=== PATIENT | female | born 1990 | race Caucasian/White ===

== ENCOUNTER 2019-05-21 07:44 | Inpatient (IN) ==
[2019-05-21] MEDS ORDERED: OXYTOCIN 30 UNITS/500 ML BAG IV PRN ×3 (08:36→20:06)
--- NOTE | 2019-05-21 08:48 | History & Physical Report ---
Date of Service May 21, 2019 Assessment & Plan (1) Elective induction of labor planned: 29 yo at 39.2 wks , IOL of lbor at term for LGA fetus EFW 3688 gr 2 weeks ago Discussed the risks and benefits, see HPI Decided for trial of VD Cervix favorable GBS negative FHR reassuring Plan to admit, monitor, Oxytocin / AROM when able and anticipate (2) Large for gestational age fetus: History of Present Illness Chief Complaint: Induction Primary Care Provider: Francisco Oconnell MD Patient is a 29 yo at 39.2 wks who was scheduled for IOL at term No complaints No ctxs/ LOF/VB/ OLMSTEAD/ Change in vision/ N&V/ Epigastric or RUQ pain/ fever/ chills/ CP/SOB +FM has been uncomplicated except Baby has been measuring over 90th percentile Last growth US was on 05/08 and EFW was 3688 gr Discussed growth / week, limitation of US for EFW Discussed risks of shoulder dystocia with nerve stretch injury, clavicle fracture, asphyxia with increased weight of baby Discussed recommendation of ACOG, as if EFW over 5000 gr Discussed risks of Csection as major surgery Offered her another US today but politely declined and decided for trial of Vaginal delivery today All questions were answered Allergies Allergy/AdvReac Type Severity Reaction Status Date / Time No Known Allergies Allergy Mild Verified 05/21/19 08:26 Home Medications Home Medications Medication Instructions Recorded Confirmed Type vit-iron fum-folic ac 1 tab PO DAILY 05/21/19 05/21/19 History [ Vitamin] Patient History Medical History H/O vaginal delivery Surgical History [place] teeth extracted Social History Preferred Language: Arabic Communication Ability: Effective Beliefs That Will Affect Care: None marital status: Current Living Situation: Family Other Information That Helps Us Care for You: No Feels Safe at Home: Yes Safety Concerns: Feels Safe At This Time Smoking Status: Former smoker Do You Dip or Chew Tobacco: No ; Hx Alcohol Use: No Hx Substance Use: No OB History FT in 2012, 7 lb 1 oz [employer] History No h/o STD's, no HSV/ Chlamydia/ GC Review of Systems All systems reviewed & are unremarkable except as noted in HPI & below Physical Exam Constitutional: WD/WN, vitals as above well developed and well nourished Comfortable, smiling Gastrointestinal (Abdomen): Abd: soft, NT, gravid, Stuart 8-9 lb Genitourinary: normal external appearance VE; cervix 4 cm/ 60%/ -3, soft, vertex Results & Data Vital Signs (Past 12 Hours) Vital Signs Temp Pulse Resp BP 05/21/19 07:55 36.9 C 89 20 140/81 05/21/19 07:54 89 140/81 Monitoring External Monitor FHR 130's reactive Tocodynamometer Irregular ctxs
[2019-05-21] MEDS: LACTATED RINGER'S 1,000 ML IV PRN ×3 (09:12→18:24)
[2019-05-21 09:18] LABS: Hematocrit (blood only) 35.2 % (37-47); Hemoglobin 12.2 g/dL (12.0-16.0); Mean Corpuscular Hemoglobin 33.4 pg (25-34); Mean Corpuscular Volume 96.4 fL (80-100); Mean Platelet Volume 10.5 fL (7.4-10.4); Platelet Count 217 K/uL (130-400); RDW Coefficient of Variation 13.8 % (11.5-14.5); RDW Standard Deviation 48.6 fL (36.4-46.3); Red Blood Count 3.65 M/uL (4.2-5.4); White Blood Count 8.42 K/uL (4.8-10.8)
[2019-05-21 09:31] LABS: Mean Corpuscular Hgb Conc 34.7 g/dL (32-36)
[2019-05-21 09:35] LABS: Albumin Level 2.5 gm/dl (3.4-5.0); BUN Creatinine Ratio 11.6 (10-20); Calcium 8.4 mg/dl (8.5-10.1); Creatinine Clr Calc Pharmacy 183.7 ml/min; Est GFR (Non-African American) 124.2; Potassium 3.4 mmol/L (3.5-5.1)
[2019-05-21 09:38] LABS: Albumin Globulin Ratio 0.7 (0.9-2); Bilirubin,Total 0.2 mg/dl (0.2-1); Globulin 3.7 gm/dl (2.5-4.0); Total Protein 6.2 gm/dl (6.4-8.2)
--- NOTE | 2019-05-21 12:41 | Obstetrical Progress Note ---
Date of Service May 21, 2019 Subjective Patient is reevaluated She feels ctxs but not very painful No LOF/VB +FM VE; 4-5 cm/ 70%/ -2, bulging bag, AROM'ed clear fluid FHR categ I Harold ctxs a 1-3 min, pitocin at 6 miu/min Continue to monitor Results & Data Vital Signs (Past 12 Hours) Vital Signs Temp Pulse Resp BP 05/21/19 11:06 36.7 C 80 16 123/74 05/21/19 10:02 85 131/78 05/21/19 09:20 81 123/70 05/21/19 07:55 36.9 C 89 20 140/81 05/21/19 07:54 89 140/81
[2019-05-21] MEDS ORDERED: fentaNYL citrate 100 MCG/2 ML VIAL ONE (13:45)
[2019-05-21] MEDS ORDERED: fentaNYL 2MCG/ML ROPIV 1.25MG/ML 100 ML BAG EPI ONE (13:45)
[2019-05-21] MEDS ORDERED: BUPIVACAINE 0.25% 30 ML VIAL ONE (13:45)
[2019-05-21] MEDS ORDERED: ePHEDrine sulfate 50 MG/ML AMP ONE (13:45)
--- NOTE | 2019-05-21 14:00 | Anesthesiology Consultation ---
Date of Service May 21, 2019 Assessment & Plan Chart Review Chart Review: Acceptable Risk for Surgery, Patient NOT seen in Pre Admission Testing and Acceptable Risk for Labor Epidural Consults Requested none ASA ASA2 Proposed Anesthesia Anesthesia Type: General and Labor Epidural Risk / Benefits Reviewed With: PT / POA / Parent / Guardian, Accepts Plan and Informed Consent Obtained History Height/Weight Height: 5 ft 7 in Weight: 107.501 kg Allergies Allergy/AdvReac Type Severity Reaction Status Date / Time No Known Allergies Allergy Mild Verified 05/21/19 08:26 Medications Home Medications Medication Instructions Recorded Confirmed Last Taken vit-iron fum-folic ac 1 tab PO DAILY 05/21/19 05/21/19 05/20/19 08:00 [ Vitamin] Active Medications Generic Name Dose Route Start Last Admin Trade Name Freq PRN Reason Stop Dose Admin Oxytocin 30 units in 500 mls @ 2 mls/hr 05/21/19 08:36 05/21/19 13:02 Pitocin IV 05/23/19 08:35 0.12 units/hr .Q24H PRN 2 mls/hr Labor Induction/Augmentation Titration Protocol 0.12 UNITS/HR Lactated Ringer's 1,000 mls @ 150 mls/hr 05/21/19 08:37 05/21/19 13:59 Lr IV 05/23/19 08:36 999 mls/hr .[id number] PRN Titration L&D Protocol Protocol NPO Date Last Intake of Fluids: 05/21/19 Time Last Intake of Fluids: 12:00 Date Last Intake of Solids: 05/21/19 Time Last Intake of Solids: 07:00 Past Medical History Medical History H/O vaginal delivery Exercise / Class Metabolic Activity II 4-5 Yardwork/Stairs/Walk up hill Past Surgical History Surgical History [place] teeth extracted Past Anesthesia History No Hx of Anesthesia Complications and No Family Hx of Anesthesia Complications History of PONV No Hx of PONV and No Hx of Motion Sickness Social History Smoking Status: Former smoker Do You Dip or Chew Tobacco: No Hx Alcohol Use: No Hx Substance Use: No substance use type: does not use Physical Exam Vital Signs Last Vital Signs Temp 36.7 C 05/21/19 11:06 Pulse 72 05/21/19 13:13 Resp 20 05/21/19 13:13 BP 134/76 05/21/19 13:13 Constitutional + obese ENMT Mouth: + small oral opening; no dentition abnormality Thyromental Distance: < 3.5 Finger Breadths Mallampati Class: II Neck normal visual inspection and trachea midline; neck extension not limited Respiratory normal respiratory effort Auscultation: lungs clear to auscultation bilaterally Cardiovascular Rate/Rhythm: regular rate and regular rhythm Heart Sounds: no murmur Musculoskeletal Spine: lumbar spine normal to inspection; normal cervical ROM Neurologic moves all extremities Motor/Sensory: no sensory deficit Psychiatric Orientation: alert and oriented x 3 Testing Laboratory Results 05/21/19 09:03 05/21/19 09:03 Blood Type O Positive 05/21/19 09:03 Antibody Screen NEGATIVE 05/21/19 09:03
[2019-05-21] MEDS ORDERED: ONDANSETRON INJ 2 MG/ML 2 ML VIAL IV PRN (14:29)
[2019-05-21] MEDS ORDERED: fentaNYL 2MCG/ML ROPIV 1.25MG/ML 100 ML BAG EPI PRN (14:29)
[2019-05-21] MEDS ORDERED: ePHEDrine sulfate 50 MG/ML AMP IV PRN (14:29)
[2019-05-21] MEDS ORDERED: NALBUPHINE HCL INJ 10 MG/ML AMP IV PRN (14:29)
[2019-05-21] MEDS ORDERED: NALOXONE HCL 1 MG in SODIUM CHLORIDE 0.9% 1000ML 1,000 ML IV PRN (14:29)
[2019-05-21] MEDS ORDERED: PROMETHAZINE HCL 25 MG in SODIUM CHLORIDE 0.9% 50 ML IV PRN (14:29)
[2019-05-21] MEDS ORDERED: DiphenhydrAMINE HCL 50 MG/ML VIAL IV PRN (14:29)
[2019-05-21] MEDS ORDERED: NALOXONE HCL 0.4 MG/1 ML VIAL/CARP IV PRN (14:29)
[2019-05-21] MEDS ORDERED: MEASLES, MUMPS & RUBELLA VIRUS VIAL SQ ONE (20:06)
[2019-05-21] MEDS ORDERED: HYDROCORTISONE ACETATE 25 MG SUPP PR PRN (20:06)
[2019-05-21] MEDS ORDERED: SUPERCREAM 0.870% 15 GM JAR EXT PRN (20:06)
[2019-05-21] MEDS ORDERED: miSOPROStoL 200 MCG TAB PR ONE (20:06)
[2019-05-21] MEDS ORDERED: BENZOCAINE 20% AER SPR 82.5 GM CAN EXT PRN (20:06)
[2019-05-21] MEDS ORDERED: OXYCODONE/ACETAMINOPHEN 5mg/325mg TAB PO PRN (20:06)
[2019-05-21] MEDS ORDERED: ACETAMINOPHEN 325 MG TAB PO PRN (20:06)
[2019-05-21] MEDS ORDERED: DIPHTHERIA/TETANUS/PERTUSSIS 0.5 ML SYR/VIAL IM ONE (20:06)
[2019-05-21] MEDS ORDERED: bisacodyL 10 MG SUPP PR PRN (20:06)
[2019-05-21] MEDS ORDERED: miSOPROStoL 200 MCG TAB ONE (20:11)
[2019-05-21] MEDS ORDERED: LACTATED RINGER'S 1,000 ML IV SCH (20:15)
--- NOTE | 2019-05-21 21:23 | Anesthesia Procedure Note ---
Date of Service May 21, 2019 Anesthesia Post Epidural Note Vital Signs Vital Signs: Temp Pulse Resp BP Pulse Ox 36.7 C 99 H 18 149/79 H 92 05/21/19 19:00 05/21/19 21:11 05/21/19 21:00 05/21/19 21:11 05/21/19 20:01 Pain Intensity Bilateral Lower Perineal: Pain Intensity: 0 Notes Mental Status: alert / awake / arousable Nausea / Vomiting: adequately controlled Pain: adequately controlled Airway Patency, RR, SpO2: stable & adequate BP & HR: stable & adequate Hydration State: stable & adequate Neuraxial Anesthesia: was administered and sensory block is resolving Anesthetic Complications: no major complications apparent Epidural: Removed without complications and With tip intact
[2019-05-21] MEDS: IBUPROFEN 600 MG TAB PO PRN (21:37)
--- NOTE | 2019-05-22 00:48 | Delivery Summary ---
DATE OF OPERATION: 05/21/2019 TIME: 1941 hours. DETAILS OF DELIVERY: The patient was found to be fully dilated and desired to push. She pushed for about half an hour and unable to bring the head down and she wanted to rest. She rested about half an hour and then felt pressure and wanted to push again. She pushed for another half an hour and delivered the head without difficulty. Shoulders were delivered with minimal traction. The baby was handed off to the mother where mouth and nose were suctioned. Cord was clamped x2 and cut. It was a 3-vessel cord and it was a delayed cord clamping at 1 minute. Then vagina and perineum were checked for lacerations. There were small first-degree lacerations on the posterior fourchette, left labia, and left periclitoral area. Those were repaired with 3-0 Vicryl and SH needle with [id number] stitches. Excellent hemostasis was achieved. Rest of the vagina and perineum were intact and placenta was found to be in the vagina, delivered spontaneously intact and complete. Uterus was explored, found to have blood clots, but empty with no retained products of conception. She had a gush of blood and then fundal massage was done and the fundus was firm. EBL was 400 ml. The bleeding was minimal. IV oxytocin was started and rectal Cytotec were given and mom and baby tolerated the procedure well. Sponge, lap, and needle count were correct x2. Baby was a viable male , Apgars 8/9, weight is 3959 gr. No complications happened. I was present during whole procedure. At the end of the procedure, sponge, lap, and needle count were correct x2. I attest to the content of the Intraoperative Record and any orders documented therein. Any exceptions are noted below. [facility]
[2019-05-22] MEDS: IBUPROFEN 600 MG TAB PO PRN ×4 (03:56→23:38)
[2019-05-22 06:41] LABS: Hematocrit (blood only) 31.2 % (37-47); Hemoglobin 10.3 g/dL (12.0-16.0); Mean Corpuscular Hemoglobin 31.7 pg (25-34); Mean Platelet Volume 10.6 fL (7.4-10.4); Platelet Count 200 K/uL (130-400); RDW Standard Deviation 48.9 fL (36.4-46.3); Red Blood Count 3.25 M/uL (4.2-5.4); White Blood Count 12.62 K/uL (4.8-10.8)
[2019-05-22] MEDS: DOCUSATE SODIUM 100 MG CAP PO SCH ×2 (08:32→20:15)
[2019-05-22] MEDS: PRENATAL VITAMIN 1 TAB PO SCH (08:32)
[2019-05-22] MEDS: FERROUS SULFATE 325 MG TAB PO SCH (08:32)
--- NOTE | 2019-05-22 10:16 | Obstetrical Progress Note ---
Date of Service May 22, 2019 Physical Exam Constitutional: WD/WN, vitals as above comfortable abdomen soft and non- tender fundus firm no edema neg Maldonado's for tent d/c in AM Results & Data Vital Signs (Past 12 Hours) Vital Signs Temp Pulse Pulse Pulse Resp BP BP 05/22/19 07:47 36.9 C 79 18 121/79 05/22/19 03:40 37.1 C 78 18 05/21/19 23:45 36.9 C 87 16 05/21/19 22:26 117 H 132/70 BP Pulse Ox 05/22/19 07:47 96 05/22/19 03:40 130/82 05/21/19 23:45 134/78 05/21/19 22:26 Laboratory Results 05/21/19 05/21/19 05/21/19 09:03 09:03 09:03 WBC 8.42 RBC 3.65 L Hgb 12.2 Hct 35.2 L MCV 96.4 MCH 33.4 MCHC 34.7 RDW Std Deviation 48.6 H RDW Coeff of Mis 13.8 Plt Count 217 MPV 10.5 H Sodium 137 Potassium 3.4 L Chloride 106 Carbon Dioxide 22 Anion Gap 9.0 BUN 6 L Creatinine 0.56 L Est Cr Clr Drug Dosing 183.7 Est GFR ( Amer) 144.0 Est GFR (Non-Af Amer) 124.2 BUN/Creatinine Ratio 11.6 Glucose 92 Calcium 8.4 L Total Bilirubin 0.2 AST 29 ALT 33 Alkaline Phosphatase 175 H Total Protein 6.2 L Albumin 2.5 L Globulin 3.7 Albumin/Globulin Ratio 0.7 L Blood Type O Positive Antibody Screen NEGATIVE 05/22/19 06:20 WBC 12.62 H RBC 3.25 L Hgb 10.3 L Hct 31.2 L MCV 96.0 MCH 31.7 MCHC 33.0 RDW Std Deviation 48.9 H RDW Coeff of Mis 14.0 Plt Count 200 MPV 10.6 H Sodium Potassium Chloride Carbon Dioxide Anion Gap BUN Creatinine Est Cr Clr Drug Dosing Est GFR ( Amer) Est GFR (Non-Af Amer) BUN/Creatinine Ratio Glucose Calcium Total Bilirubin AST ALT Alkaline Phosphatase Total Protein Albumin Globulin Albumin/Globulin Ratio Blood Type Antibody Screen
[2019-05-22] MEDS ORDERED: bisacodyL 5 MG TABEC PO SCH (20:00)
[2019-05-23 07:05] LABS: Hematocrit (blood only) 31.2 % (37-47); Hemoglobin 10.3 g/dL (12.0-16.0)
[2019-05-23] MEDS: IBUPROFEN 600 MG TAB PO PRN (08:21)
[2019-05-23] MEDS: FERROUS SULFATE 325 MG TAB PO SCH (08:21)
[2019-05-23] MEDS: PRENATAL VITAMIN 1 TAB PO SCH (08:21)
[2019-05-23] MEDS: DOCUSATE SODIUM 100 MG CAP PO SCH (08:21)
--- NOTE | 2019-05-23 08:44 | Obstetrical Progress Note ---
Date of Service May 23, 2019 Assessment & Plan (1) normal course: pt doing well no complaints disch home with instructions Subjective Ambulation: ambulating normally Voiding: no voiding problems Passing Gas:: Yes Diet Tolerance:: regular diet Lochia:: Small Feeding Type:: breast feeding Review of Systems All systems reviewed & are unremarkable except as noted in HPI & below Physical Exam Constitutional WD/WN, vitals as above well developed and well nourished Eyes PERRL, conjunctivae normal, anicteric sclerae Neck trachea midline, no thyromegaly Respiratory normal respiratory effort, lungs clear to auscultation Auscultation: no crackles, no rales and no wheezes Cardiovascular RRR, no murmur, no edema Gastrointestinal (Abdomen) normal bowel sounds, soft, nontender, no hepatosplenomegaly Uterus is below umbilicus Musculoskeletal no cyanosis or clubbing, extremities motor strength 5/5 Skin no rashes, warm and dry Neurologic patellar DTR's 2+ bilat, sensation intact Psychiatric A+Ox3, euthymic affect Genitourinary normal external appearance Results & Data Vital Signs (Past 12 Hours) Vital Signs Temp Pulse Resp BP 05/22/19 23:30 36.9 C 79 18 122/77
== END 2019-05-23 12:47 | disposition home or self-care (01) | DRG 807 ==
LOC: 4S1 07:44 → 4S2 23:25

== ENCOUNTER 2021-02-06 05:15 | Observation (INO) ==
[2021-02-06] MEDS ORDERED: ONDANSETRON INJ 2 MG/ML 2 ML VIAL IV STA (05:31)
[2021-02-06] MEDS ORDERED: MoRPHine SULFATE 4 MG/ML 1 ML CARP\\VIAL IV STA ×2 (05:31→06:49)
[2021-02-06] MEDS ORDERED: SODIUM CHLORIDE 0.9% 1000ML 1,000 ML IV SCH (05:45)
[2021-02-06 06:10] LABS: Basophils # (auto) 0.01 K/uL (0-0.2); Basophils % (auto) 0.1 %; Eosinophils # (auto) 0.04 K/uL (0-0.5); Eosinophils % (auto) 0.4 %; Hematocrit (blood only) 36.8 % (37-47); Hemoglobin 12.4 g/dL (12.0-16.0); Immature Granulocytes # (auto) 0.02 K/uL (0.00-0.02); Immature Granulocytes % (auto) 0.2 %; Lymphocytes # (auto) 2.06 K/uL (1.2-3.4); Lymphocytes % (auto) 18.1 %; Mean Corpuscular Hemoglobin 33.2 pg (25-34); Mean Corpuscular Hgb Conc 33.7 g/dL (32-36); Mean Corpuscular Volume 98.4 fL (80-100); Mean Platelet Volume 9.9 fL (7.4-10.4); Monocytes # (auto) 0.89 K/uL (0.11-0.59); Monocytes % (auto) 7.8 %; Neutrophils # (auto) 8.35 K/uL (1.4-6.5); Neutrophils % (auto) 73.4 %; Platelet Count 242 K/uL (130-400); RDW Coefficient of Variation 13.1 % (11.5-14.5); RDW Standard Deviation 47.4 fL (36.4-46.3); Red Blood Count 3.74 M/uL (4.2-5.4); White Blood Count 11.37 K/uL (4.8-10.8)
[2021-02-06 06:20] LABS: Albumin Level 3.9 gm/dl (3.4-5.0); BUN Creatinine Ratio 14.8 (10-20); Creatinine Clr Calc Pharmacy 126.2 ml/min; Est GFR (African American) 122.2 ml/min; Est GFR (Non-African American) 105.5 ml/min; Potassium 3.4 mmol/L (3.5-5.1)
[2021-02-06 06:23] LABS: Albumin Globulin Ratio 1.2 (0.9-2); Bilirubin,Total 0.3 mg/dl (0.2-1); Globulin 3.3 gm/dl (2.5-4.0); Total Protein 7.2 gm/dl (6.4-8.2)
--- NOTE | 2021-02-06 07:10 | Ultrasound Report ---
US OB <= 14 weeks fetus CLINICAL HISTORY: right side pain. preg COMPARISON STUDY: No previous studies for comparison. TECHNIQUE: Transabdominal sonography of the pelvis was performed. FINDINGS: Uterus measures 8.1 x 4.2 x 4.3 cm. No intrauterine gestational sac is noted. There is trac e fluid within the endometrial canal. Endometrium measures 1.3 cm in thickness. The left ovary measur es 3.8 x 1.4 x 1.6 cm. The right ovary is partially obscured by adjacent hemorrhage but measures appr oximately 4.8 x 3.7 x 4.2 cm. There is a 3.3 cm cystic focus within the right adnexa. This may be wit hin the right ovary or represent an ectopic . There is extensive echogenic material within t he right adnexa consistent with hemorrhage. The fluid extends into the right upper quadrant. . IMPRESSION: No intrauterine gestational sac. Extensive echogenic material within the right adnexa as well as fluid extending into the right upper quadrant. The findings suggest hemoperitoneum. 3.3 cm c ystic focus within the right adnexa which could reflect an ovarian cyst or ectopic . Overall , the findings are highly suggestive of a ruptured right adnexal ectopic . Urgent OB consult ation is recommended. Findings discussed with Young Crockett at time of dictation. ACT 112: Negative or not required by law. Electronically signed by: Felipe Regalado M.D. 02/06/2021 7:09 AM
--- NOTE | 2021-02-06 07:34 | Ultrasound Report ---
US gallbladder HISTORY: 30 years-old Female right side abd pain . Acute right upper quadrant abdominal pain COMPARISON: Pelvic ultrasound of same day TECHNIQUE: Multiple real-time sonographic images of the abdominal right upper quadrant were obtained assessing grayscale appearance and color flow FINDINGS: Trace perihepatic ascites. Unremarkable pancreas and liver. The gallbladder is within normal limits w ithout wall thickening, shadowing cholelithiasis or pericholecystic fluid. Normal common bile duct, 2 .2 mm. The imaged right kidney is unremarkable without hydronephrosis. IMPRESSION: 1. Trace perihepatic ascites. 2. Unremarkable gallbladder. 3. No biliary ductal dilation. ACT 112: Negative or not required by law. The above report was generated using voice recognition software. It may contain grammatical, syntax o r spelling errors. Electronically signed by: Cuco Fragoso M.D. 02/06/2021 7:33 AM
[2021-02-06] MEDS ORDERED: SODIUM CHLORIDE 0.9% 250 ML IV PRN (07:36)
[2021-02-06] MEDS ORDERED: ceFAZolin 2000MG 2,000 MG/15 ML SYR IV ONE (07:38)
--- NOTE | 2021-02-06 07:48 | History & Physical Report ---
Date of Service February 06, 2021 Assessment & Plan (1) , ectopic: Plan: 30 to with unknown LMP presenting with abdominal/ RUQ/ shoulder pain, + BHCG, no IUP, blood in pelvis/ abdomen, suggesting ruptured ectopic VSS Afebrile Recommended Laparoscopy, evacuation of blood cloths, surgical treatment of ectopic pregnancym possible salpingectomy Understands the risks of surgery and signed and informed consent All questions were answered. (2) Delayed or excessive hemorrhage following ectopic and molar : (3) Hemoperitoneum: History of Present Illness Primary Care Provider: Joshua Hsieh MD Patient is a 30 yo with unknown LMP who found out about 2 days ago at home with UPT. She was having lower abdominal cramping all week and started to have severe abdominal pain, radiating to her ribs and shoulders at around 00:30 am this morning. She has been having abnormal uterine bleeding for months and has been on BCP. She has light VB for few days, She presented to ER and found to have + BHCG and blood in pelvis/ upper abdomen, suggesting Ruptured ectopic . She is known to me from 2019 when I delivered her son. Allergies Allergy/AdvReac Type Severity Reaction Status Date / Time No Known Allergies Allergy Mild Verified 05/21/19 08:26 Home Medications Medication Instructions Recorded Confirmed Type vitamins-iron fumarate 27 1 tab PO DAILY 05/21/19 05/21/19 History mg iron-folic acid 0.8 mg tablet ( Vitamin) ibuprofen 600 mg tablet 600 mg PO Q4H #20 tab 05/23/19 Rx Patient History Medical History (Updated 02/06/21 @ 07:46 by Rosanna Tatum MD) H/O vaginal delivery Surgical History [place] teeth extracted Social History Smoking Status: Former smoker Hx Alcohol Use: No Hx Substance Use: No Preferred Language: Tristanian Communication Ability: Effective Beliefs That Will Affect Care: None marital status: Current Living Situation: Family Feels Safe at Home: Yes Assistive Devices: Glasses OB History FT in 2012 and 2019. Review of Systems as per Subjective / HPI Physical Exam Constitutional: well developed, well nourished and + acute distress (NAD, pain improved after Morphine was given) Respiratory: normal respiratory effort, lungs clear to auscultation Gastrointestinal (Abdomen): Inspection/Auscultation: abdomen normal to inspection Percussion/Palpation: + abdomen tender and + guarding Results & Data ([facility]) Vital Signs (Past 12 Hours) Vital Signs Temp Pulse Pulse Resp BP BP Pulse Ox 02/06/21 07:00 128 H 24 162/114 H 97 02/06/21 05:31 36.8 C 99 H 133/88 98 02/06/21 05:17 36.6 C 109 H 18 136/83 98 Laboratory Results Lab Results 02/06/21 02/06/21 02/06/21 Range/Units 05:36 05:36 05:43 WBC 11.37 H (4.8-10.8) K/uL RBC 3.74 L (4.2-5.4) M/uL Hgb 12.4 (12.0-16.0) g/dL Hct 36.8 L (37-47) % MCV 98.4 (80-100) fL MCH 33.2 (25-34) pg MCHC 33.7 (32-36) g/dL RDW Std Deviation 47.4 H (36.4-46.3) fL RDW Coeff of Mis 13.1 (11.5-14.5) % Plt Count 242 (130-400) K/uL MPV 9.9 (7.4-10.4) fL Immature Gran % (Auto) 0.2 % Neut % (Auto) 73.4 % Lymph % (Auto) 18.1 % Page % (Auto) 7.8 % Eos % (Auto) 0.4 % Baso % (Auto) 0.1 % Neut # (Auto) 8.35 H (1.4-6.5) K/uL Lymph # (Auto) 2.06 (1.2-3.4) K/uL Page # (Auto) 0.89 H (0.11-0.59) K/uL Eos # (Auto) 0.04 (0-0.5) K/uL Baso # (Auto) 0.01 (0-0.2) K/uL Immature Gran # (Auto) 0.02 (0.00-0.02) K/uL Sodium (136-145) mmol/L Potassium (3.5-5.1) mmol/L Chloride (98-107) mmol/L Carbon Dioxide (21-32) mmol/L Anion Gap (3-11) BUN (7-18) mg/dl Creatinine (0.6-1.2) mg/dl Est Cr Clr Drug Dosing ml/min Est GFR ( Amer) ml/min Est GFR (Non-Af Amer) ml/min BUN/Creatinine Ratio (10-20) Glucose (70-99) mg/dl Calcium (8.5-10.1) mg/dl Total Bilirubin (0.2-1) mg/dl AST (15-37) U/L ALT (12-78) U/L Alkaline Phosphatase (45-117) U/L Total Protein (6.4-8.2) gm/dl Albumin (3.4-5.0) gm/dl Globulin (2.5-4.0) gm/dl Albumin/Globulin Ratio (0.9-2) Lipase (73-393) U/L HCG, Quant 1711 mIU/ml COVID-19 Eval Order Blood Type O Positive Antibody Screen NEGATIVE Crossmatch See Detail 02/06/21 02/06/21 Range/Units 05:44 Unknown WBC (4.8-10.8) K/uL RBC (4.2-5.4) M/uL Hgb (12.0-16.0) g/dL Hct (37-47) % MCV (80-100) fL MCH (25-34) pg MCHC (32-36) g/dL RDW Std Deviation (36.4-46.3) fL RDW Coeff of Mis (11.5-14.5) % Plt Count (130-400) K/uL MPV (7.4-10.4) fL Immature Gran % (Auto) % Neut % (Auto) % Lymph % (Auto) % Page % (Auto) % Eos % (Auto) % Baso % (Auto) % Neut # (Auto) (1.4-6.5) K/uL Lymph # (Auto) (1.2-3.4) K/uL Page # (Auto) (0.11-0.59) K/uL Eos # (Auto) (0-0.5) K/uL Baso # (Auto) (0-0.2) K/uL Immature Gran # (Auto) (0.00-0.02) K/uL Sodium 142 (136-145) mmol/L Potassium 3.4 L (3.5-5.1) mmol/L Chloride 108 H (98-107) mmol/L Carbon Dioxide 27 (21-32) mmol/L Anion Gap 7.0 (3-11) BUN 11 (7-18) mg/dl Creatinine 0.75 (0.6-1.2) mg/dl Est Cr Clr Drug Dosing 126.2 ml/min Est GFR ( Amer) 122.2 ml/min Est GFR (Non-Af Amer) 105.5 ml/min BUN/Creatinine Ratio 14.8 (10-20) Glucose 97 (70-99) mg/dl Calcium 9.0 (8.5-10.1) mg/dl Total Bilirubin 0.3 (0.2-1) mg/dl AST 16 (15-37) U/L ALT 28 (12-78) U/L Alkaline Phosphatase 53 (45-117) U/L Total Protein 7.2 (6.4-8.2) gm/dl Albumin 3.9 (3.4-5.0) gm/dl Globulin 3.3 (2.5-4.0) gm/dl Albumin/Globulin Ratio 1.2 (0.9-2) Lipase 64 L (73-393) U/L HCG, Quant mIU/ml COVID-19 Eval Order Covid19 at [facility] Blood Type Antibody Screen Crossmatch Diagnostic Findings PELVIC US: FINDINGS: Uterus measures 8.1 x 4.2 x 4.3 cm. No intrauterine gestational sac is noted. There is trace fluid within the endometrial canal. Endometrium measures 1.3 cm in thickness. The left ovary measures 3.8 x 1.4 x 1.6 cm. The right ovary is partially obscured by adjacent hemorrhage but measures approximately 4.8 x 3.7 x 4.2 cm. There is a 3.3 cm cystic focus within the right adnexa. This may be within the right ovary or represent an ectopic . There is extensive echogenic material within the right adnexa consistent with hemorrhage. The fluid extends into the right upper quadrant. . IMPRESSION: No intrauterine gestational sac. Extensive echogenic material within the right adnexa as well as fluid extending into the right upper quadrant. The findings suggest hemoperitoneum. 3.3 cm cystic focus within the right adnexa which could reflect an ovarian cyst or ectopic . Overall, the findings are highly suggestive of a ruptured right adnexal ectopic . Urgent OB consultation is recommended.
[2021-02-06 08:17] LABS: Appearance Urine Clear (Clear); Bilirubin Urine Negative (Negative); Blood Urine Negative (Negative); Color Urine Yellow; Glucose Urine UA Negative (Negative); Ketones Urine Negative (Negative); Leukocyte Esterase Urine Negative (Negative); Nitrite Urine Negative (Negative); Protein Urine Negative (Negative); Specific Gravity Urine 1.027 (1.000-1.030); Urobilinogen Urine Negative (Negative); pH Urine 5.5 (4.5-7.5)
[2021-02-06] MEDS ORDERED: BUPIVACAINE 0.5 % 5 MG/1 ML MPF 30ML VIAL ONE (08:27)
[2021-02-06] MEDS ORDERED: EPINEPHrine INJ 1 MG/ML AMP ONE (08:27)
--- NOTE | 2021-02-06 08:27 | Anesthesiology Consultation ---
Date of Service February 06, 2021 Assessment & Plan (1) Encounter for pre-operative examination: Chart Review Chart Review: Acceptable Risk for Surgery Consults Requested none ASA [id number] Proposed Anesthesia Anesthesia Type: General Risk / Benefits Reviewed With: PT / POA / Parent / Guardian, Accepts Plan and Informed Consent Obtained History Surgery Operation Date: 02/06/21 08:30 Proposed Procedures p Laparoscopic Evacuation Clots Abdomen and Pelvis, Ectopic Possible Salpingectomy - Rosanna Tatum MD Height/Weight Height: 5 ft 7 in Weight: 93.2 kg Allergies Allergy/AdvReac Type Severity Reaction Status Date / Time No Known Allergies Allergy Mild Verified 02/06/21 08:00 Medications Home Medications Medication Instructions Recorded Confirmed Last Taken norethindrone (contraceptive) 0.35 0.35 mg PO HS 02/06/21 02/06/21 02/05/21 mg tablet NPO Date Last Intake of Fluids: 02/06/21 Time Last Intake of Fluids: 02:00 Date Last Intake of Solids: 02/06/21 Time Last Intake of Solids: 02:00 Past Medical History Medical History (Updated 02/06/21 @ 08:29 by Xavier Simon DO) H/O vaginal delivery Exercise / Class Metabolic Activity II 4-5 Yardwork/Stairs/Walk up hill Past Surgical History Surgical History [place] teeth extracted Past Anesthesia History No Hx of Anesthesia Complications and No Family Hx of Anesthesia Complications History of PONV No Hx of PONV and No Hx of Motion Sickness Social History Smoking Status: Former smoker Hx Alcohol Use: No Hx Substance Use: No substance use type: does not use Physical Exam Vital Signs Last Vital Signs Temp 98.2 F 02/06/21 05:31 Pulse 66 02/06/21 08:24 Resp 18 02/06/21 08:24 BP 98/50 L 02/06/21 08:24 Pulse Ox 98 02/06/21 08:24 ENMT Mouth: no dentition abnormality Thyromental Distance: > or= 3.5 Finger Breadths Mallampati Class: II Neck normal visual inspection Respiratory normal respiratory effort Auscultation: lungs clear to auscultation bilaterally Cardiovascular Rate/Rhythm: regular rate and regular rhythm Testing Laboratory Results 02/06/21 05:36 02/06/21 05:44 HCG, Quant 1711 mIU/ml 02/06/21 05:36 Urine Color Yellow 02/06/21 07:45 Urine Appearance Clear (Clear) 02/06/21 07:45 Urine pH 5.5 (4.5-7.5) 02/06/21 07:45 Ur Specific [place] 1.027 (1.000-1.030) 02/06/21 07:45 Urine Protein Negative (Negative) 02/06/21 07:45 Urine Glucose (UA) Negative (Negative) 02/06/21 07:45 Urine Ketones Negative (Negative) 02/06/21 07:45 Urine Nitrite Negative (Negative) 02/06/21 07:45 Ur Leukocyte Esterase Negative (Negative) 02/06/21 07:45 Blood Type O Positive 02/06/21 05:43 Antibody Screen NEGATIVE 02/06/21 05:43 02/06/21 05:36 HCG, Quant 1711
[2021-02-06] MEDS ORDERED: MIDAZOLAM HCL 1 MG/ML 2ML VIAL ONE (08:32)
[2021-02-06] MEDS ORDERED: fentaNYL citrate 100 MCG/2 ML VIAL ONE ×3 (08:32→10:43)
[2021-02-06] MEDS ORDERED: ACETAMINOPHEN 1000 MG/100 ML IV IV ONE (08:36)
[2021-02-06] MEDS ORDERED: FAMOTIDINE/PF 20 MG/2 ML VIAL IV ONE (08:36)
[2021-02-06] MEDS ORDERED: ALBUMIN HUMAN 5% 12.5 GM/250 ML VIAL IV ONE (08:37)
[2021-02-06] MEDS ORDERED: SCOPOLAMINE 1 MG TDSY TD ONE (08:37)
[2021-02-06] MEDS ORDERED: ROCURONIUM BROMIDE 10 MG/ML 5 ML VIAL IV ONE (09:33)
[2021-02-06] MEDS ORDERED: ONDANSETRON INJ 2 MG/ML 2 ML VIAL ONE (09:33)
[2021-02-06] MEDS ORDERED: DEXAMETHASONE SOD INJ 4 MG/ML VIAL ONE (09:33)
[2021-02-06] MEDS ORDERED: METOCLOPRAMIDE HCL INJ 5 MG/ML 2 ML VIAL ONE (09:33)
[2021-02-06] MEDS ORDERED: SUCCINYLCHOLINE CHLORIDE 20 MG/ML 10 ML VIAL IV ONE (09:33)
[2021-02-06] MEDS ORDERED: PROPOFOL IV EMULSION 10 MG/ML 20 ML VIAL IV ONE (09:33)
[2021-02-06] MEDS ORDERED: ePHEDrine sulfate 50 MG/ML SYR ONE (09:34)
[2021-02-06] MEDS ORDERED: HYDROmorphone INJ 2 MG/ML SYR/VIAL ONE (09:34)
[2021-02-06] MEDS ORDERED: PHENYLEPHRINE 100MCG/ML 5ML SYR ONE (09:34)
--- NOTE | 2021-02-06 10:36 | Emergency Department Note ---
History of Present Illness General Chief complaint: Abdominal Pain Stated complaint: ABD PAIN Time Seen by Provider: 02/06/21 05:23 History of Present Illness Maximum Pain Intensity: 6 This is a 30-year-old female presenting to the emergency department for evaluation of right-sided abdominal pain. The patient is employed here at the [employer] and worked all night and began with pain around 12:30 AM, roughly 5 hours prior to arrival. The patient states she is having pain all along the right side of her abdomen and into her right shoulder. She does not have chest pain, chest tightness, or shortness of breath. No lightheadedness or dizziness. She does not have a history of abdominal surgery. The patient states that she had a positive test within the past few days and this is her third . She is unsure of her last menstrual period as she had a child 20 months ago and her menses has been very irregular. She is on control. She rates her pain in the abdomen is 6/10 that worsens with certain movement. Laying flat is significantly worse. Home Medications Medication Instructions Recorded Confirmed Type norethindrone (contraceptive) 0.35 0.35 mg PO HS 02/06/21 02/06/21 History mg tablet Allergies Allergy/AdvReac Type Severity Reaction Status Date / Time No Known Allergies Allergy Mild Verified 02/06/21 08:00 Past Med/Surg History Medical History H/O vaginal delivery Surgical History [place] teeth extracted Social History Smoking Status: Former smoker Hx Alcohol Use: No Hx Substance Use: No Preferred Language: Romanian Communication Ability: Effective Beliefs That Will Affect Care: None marital status: Current Living Situation: Family Feels Safe at Home: Yes Assistive Devices: Glasses Review of Systems A total of 10 systems reviewed and were otherwise negative Physical Exam Vital Signs Vital Signs - 24 hr 02/06/21 05:17 02/06/21 05:31 02/06/21 07:00 Temperature 36.6 C 36.8 C Temperature Source Temporal Artery Scan Oral Pulse Rate 109 H Pulse Rate [Right Finger] 99 H 128 H Pulse Rhythm Regular Pulse Rhythm [Right Finger] Regular Pulse Strength Normal Pulse Strength [Right Finger] Normal Respiratory Rate 18 24 Respiratory Effort / Characteristics Non-Labored Spontaneous Non-Labored Spontaneous Respiratory Depth Normal Normal Respiratory Pattern Regular Blood Pressure 136/83 Blood Pressure [Right Arm] 133/88 162/114 H Blood Pressure Mean 100 Blood Pressure Mean [Right Arm] 103 130 Blood Pressure Position Sitting Blood Pressure Position [Right Arm] Sitting Pulse Oximetry 98 98 97 Oxygen Delivery Method Room Air Room Air Room Air Sepsis Recent Fever Within 48 Hours No Sepsis New/Unexplained Change in Mental Status N/A Sepsis Action Taken by Nursing No Action Required 02/06/21 07:48 02/06/21 08:24 02/06/21 08:35 Temperature 36.6 C Temperature Source Oral Pulse Rate Pulse Rate [Right Finger] 88 66 77 Pulse Rhythm Pulse Rhythm [Right Finger] Regular Pulse Strength Pulse Strength [Right Finger] Normal Respiratory Rate 18 18 18 Respiratory Effort / Characteristics Non-Labored Spontaneous Respiratory Depth Normal Respiratory Pattern Regular Blood Pressure Blood Pressure [Right Arm] 131/74 98/50 L 101/83 Blood Pressure Mean Blood Pressure Mean [Right Arm] 93 66 89 Blood Pressure Position Blood Pressure Position [Right Arm] Sitting Pulse Oximetry 100 98 100 Oxygen Delivery Method Room Air Room Air Room Air Sepsis Recent Fever Within 48 Hours Sepsis New/Unexplained Change in Mental Status Sepsis Action Taken by Nursing VITALS: Vitals are noted on the nurse's note and reviewed by myself. Vital signs stable. GENERAL: Well-developed, well-nourished, white female who is moderately uncomfortable on presentation. She is pleasant and cooperative. NECK: Supple without nuchal rigidity. No lymphadenopathy. No thyromegaly. Cervical spine is nontender. HEART: Regular rate and rhythm without murmurs gallops or rubs. LUNGS: Clear to auscultation bilaterally without wheezes, rales or rhonchi. No retractions or accessory muscle use. ABDOMEN: Positive normal bowel sounds x 4. Soft with right upper and right lower quadrant tenderness on palpation. No CVA tenderness. No rebound or guard ing. MUSCULOSKELETAL: No muscle atrophy, erythema, or edema noted. Full range of motion in all extremities. Course Administered Medications Discontinued Medications Sodium Chloride (Nss 1000ml) 1,000 mls @ 999 mls/hr IV .Q1H1M PARESH Stop: 02/06/21 06:45 Last Infusion: 02/06/21 07:00 Dose: 0 mls/hr Documented by: [id number] Admin: 02/06/21 05:40 Dose: 999 mls/hr Documented by: [id number] Cefazolin Sodium (Ancef 2000mg) 2,000 mg in 15 mls @ 3.75 mls/min IV PREOP ONE Stop: 02/06/21 07:41 Last Admin: 02/06/21 08:57 Dose: 3.75 mls/min Documented by: [id number] Morphine Sulfate (Morphine Sulfate 4 Mg/Ml 1 Ml Carp\Vial) 4 mg IV NOW STA Stop: 02/06/21 05:32 Last Admin: 02/06/21 05:39 Dose: 4 mg Documented by: [id number] Morphine Sulfate (Morphine Sulfate 4 Mg/Ml 1 Ml Carp\Vial) 4 mg IV NOW STA Stop: 02/06/21 06:50 Last Admin: 02/06/21 06:57 Dose: 4 mg Documented by: [id number] Ondansetron HCl (Ondansetron Inj 2 Mg/Ml 2 Ml Vial) 4 mg IV NOW STA Stop: 02/06/21 05:32 Last Admin: 02/06/21 05:39 Dose: 4 mg Documented by: [id number] Medical Decision Making Differential Diagnosis Differential diagnosis: Etiologies such as biliary colic, cholecystitis, hepatitis, pancreatitis, cardiac disease, pancreatitis, gastritis, peptic ulcer disease, appendicitis, cystitis, diverticulitis, mesenteric ischemia, inflammatory bowel disease, ileus, bowel obstruction, testicular/adnexal torsion, aortic pathology, shingles, as well as others were considered Laboratory Data Result diagrams: 02/06/21 05:36 02/06/21 05:44 Lab Results 02/06/21 02/06/21 02/06/21 Range/Units 05:36 05:36 05:43 WBC 11.37 H (4.8-10.8) K/uL RBC 3.74 L (4.2-5.4) M/uL Hgb 12.4 (12.0-16.0) g/dL Hct 36.8 L (37-47) % MCV 98.4 (80-100) fL MCH 33.2 (25-34) pg MCHC 33.7 (32-36) g/dL RDW Std Deviation 47.4 H (36.4-46.3) fL RDW Coeff of Mis 13.1 (11.5-14.5) % Plt Count 242 (130-400) K/uL MPV 9.9 (7.4-10.4) fL Immature Gran % (Auto) 0.2 % Neut % (Auto) 73.4 % Lymph % (Auto) 18.1 % [place] % (Auto) 7.8 % Eos % (Auto) 0.4 % Baso % (Auto) 0.1 % Neut # (Auto) 8.35 H (1.4-6.5) K/uL Lymph # (Auto) 2.06 (1.2-3.4) K/uL [place] # (Auto) 0.89 H (0.11-0.59) K/uL Eos # (Auto) 0.04 (0-0.5) K/uL Baso # (Auto) 0.01 (0-0.2) K/uL Immature Gran # (Auto) 0.02 (0.00-0.02) K/uL Sodium (136-145) mmol/L Potassium (3.5-5.1) mmol/L Chloride (98-107) mmol/L Carbon Dioxide (21-32) mmol/L Anion Gap (3-11) BUN (7-18) mg/dl Creatinine (0.6-1.2) mg/dl Est Cr Clr Drug Dosing ml/min Est GFR ( Amer) ml/min Est GFR (Non-Af Amer) ml/min BUN/Creatinine Ratio (10-20) Glucose (70-99) mg/dl Calcium (8.5-10.1) mg/dl Total Bilirubin (0.2-1) mg/dl AST (15-37) U/L ALT (12-78) U/L Alkaline Phosphatase (45-117) U/L Total Protein (6.4-8.2) gm/dl Albumin (3.4-5.0) gm/dl Globulin (2.5-4.0) gm/dl Albumin/Globulin Ratio (0.9-2) Lipase (73-393) U/L HCG, Quant 1711 mIU/ml Urine Color Urine Appearance (Clear) Urine pH (4.5-7.5) Ur Specific Lydia (1.000-1.030) Urine Protein (Negative) Urine Glucose (UA) (Negative) Urine Ketones (Negative) Urine Blood (Negative) Urine Nitrite (Negative) Urine Bilirubin (Negative) Urine Urobilinogen (Negative) Ur Leukocyte Esterase (Negative) COVID-19 Eval Order SARS-CoV-2 (PCR) (Negative) Blood Type O Positive Antibody Screen NEGATIVE Crossmatch See Detail 02/06/21 02/06/21 02/06/21 Range/Units 05:44 07:45 Unknown WBC (4.8-10.8) K/uL RBC (4.2-5.4) M/uL Hgb (12.0-16.0) g/dL Hct (37-47) % MCV (80-100) fL MCH (25-34) pg MCHC (32-36) g/dL RDW Std Deviation (36.4-46.3) fL RDW Coeff of Mis (11.5-14.5) % Plt Count (130-400) K/uL MPV (7.4-10.4) fL Immature Gran % (Auto) % Neut % (Auto) % Lymph % (Auto) % [place] % (Auto) % Eos % (Auto) % Baso % (Auto) % Neut # (Auto) (1.4-6.5) K/uL Lymph # (Auto) (1.2-3.4) K/uL [place] # (Auto) (0.11-0.59) K/uL Eos # (Auto) (0-0.5) K/uL Baso # (Auto) (0-0.2) K/uL Immature Gran # (Auto) (0.00-0.02) K/uL Sodium 142 (136-145) mmol/L Potassium 3.4 L (3.5-5.1) mmol/L Chloride 108 H (98-107) mmol/L Carbon Dioxide 27 (21-32) mmol/L Anion Gap 7.0 (3-11) BUN 11 (7-18) mg/dl Creatinine 0.75 (0.6-1.2) mg/dl Est Cr Clr Drug Dosing 126.2 ml/min Est GFR ( Amer) 122.2 ml/min Est GFR (Non-Af Amer) 105.5 ml/min BUN/Creatinine Ratio 14.8 (10-20) Glucose 97 (70-99) mg/dl Calcium 9.0 (8.5-10.1) mg/dl Total Bilirubin 0.3 (0.2-1) mg/dl AST 16 (15-37) U/L ALT 28 (12-78) U/L Alkaline Phosphatase 53 (45-117) U/L Total Protein 7.2 (6.4-8.2) gm/dl Albumin 3.9 (3.4-5.0) gm/dl Globulin 3.3 (2.5-4.0) gm/dl Albumin/Globulin Ratio 1.2 (0.9-2) Lipase 64 L (73-393) U/L HCG, Quant mIU/ml Urine Color Yellow Urine Appearance Clear (Clear) Urine pH 5.5 (4.5-7.5) Ur Specific Lydia 1.027 (1.000-1.030) Urine Protein Negative (Negative) Urine Glucose (UA) Negative (Negative) Urine Ketones Negative (Negative) Urine Blood Negative (Negative) Urine Nitrite Negative (Negative) Urine Bilirubin Negative (Negative) Urine Urobilinogen Negative (Negative) Ur Leukocyte Esterase Negative (Negative) COVID-19 Eval Order Covid19 at [facility] SARS-CoV-2 (PCR) (Negative) Blood Type Antibody Screen Crossmatch 02/06/21 Range/Units Unknown WBC (4.8-10.8) K/uL RBC (4.2-5.4) M/uL Hgb (12.0-16.0) g/dL Hct (37-47) % MCV (80-100) fL MCH (25-34) pg MCHC (32-36) g/dL RDW Std Deviation (36.4-46.3) fL RDW Coeff of Mis (11.5-14.5) % Plt Count (130-400) K/uL MPV (7.4-10.4) fL Immature Gran % (Auto) % Neut % (Auto) % Lymph % (Auto) % [place] % (Auto) % Eos % (Auto) % Baso % (Auto) % Neut # (Auto) (1.4-6.5) K/uL Lymph # (Auto) (1.2-3.4) K/uL [place] # (Auto) (0.11-0.59) K/uL Eos # (Auto) (0-0.5) K/uL Baso # (Auto) (0-0.2) K/uL Immature Gran # (Auto) (0.00-0.02) K/uL Sodium (136-145) mmol/L Potassium (3.5-5.1) mmol/L Chloride (98-107) mmol/L Carbon Dioxide (21-32) mmol/L Anion Gap (3-11) BUN (7-18) mg/dl Creatinine (0.6-1.2) mg/dl Est Cr Clr Drug Dosing ml/min Est GFR ( Amer) ml/min Est GFR (Non-Af Amer) ml/min BUN/Creatinine Ratio (10-20) Glucose (70-99) mg/dl Calcium (8.5-10.1) mg/dl Total Bilirubin (0.2-1) mg/dl AST (15-37) U/L ALT (12-78) U/L Alkaline Phosphatase (45-117) U/L Total Protein (6.4-8.2) gm/dl Albumin (3.4-5.0) gm/dl Globulin (2.5-4.0) gm/dl Albumin/Globulin Ratio (0.9-2) Lipase (73-393) U/L HCG, Quant mIU/ml Urine Color Urine Appearance (Clear) Urine pH (4.5-7.5) Ur Specific [place] (1.000-1.030) Urine Protein (Negative) Urine Glucose (UA) (Negative) Urine Ketones (Negative) Urine Blood (Negative) Urine Nitrite (Negative) Urine Bilirubin (Negative) Urine Urobilinogen (Negative) Ur Leukocyte Esterase (Negative) COVID-19 Eval Order SARS-CoV-2 (PCR) NEGATIVE (Negative) Blood Type Antibody Screen Crossmatch Imaging Data Radiologist's Impression: Ultrasound 02/06/21 05:31 US OB <= 14 weeks fetus CLINICAL HISTORY: right side pain. preg COMPARISON STUDY: No previous studies for comparison. TECHNIQUE: Transabdominal sonography of the pelvis was performed. FINDINGS: Uterus measures 8.1 x 4.2 x 4.3 cm. No intrauterine gestational sac is noted. There is trace fluid within the endometrial canal. Endometrium measures 1.3 cm in thickness. The left ovary measures 3.8 x 1.4 x 1.6 cm. The right ovary is partially obscured by adjacent hemorrhage but measures approximately 4.8 x 3.7 x 4.2 cm. There is a 3.3 cm cystic focus within the right adnexa. This may be within the right ovary or represent an ectopic . There is extensive echogenic material within the right adnexa consistent with hemorrhage. The fluid extends into the right upper quadrant. . IMPRESSION: No intrauterine gestational sac. Extensive echogenic material within the right adnexa as well as fluid extending into the right upper quadrant. The findings suggest hemoperitoneum. 3.3 cm cystic focus within the right adnexa which could reflect an ovarian cyst or ectopic . Overall, the findings are highly suggestive of a ruptured right adnexal ectopic . Urgent OB consultation is recommended. Findings discussed with Young Crockett at time of dictation. ACT 112: Negative or not required by law. Electronically signed by: Felipe Regalado M.D. 02/06/2021 7:09 AM Gallbladder Ultrasound 02/06/21 05:31 US gallbladder HISTORY: 30 years-old Female right side abd pain . Acute right upper quadrant abdominal pain COMPARISON: Pelvic ultrasound of same day TECHNIQUE: Multiple real-time sonographic images of the abdominal right upper quadrant were obtained assessing grayscale appearance and color flow FINDINGS: Trace perihepatic ascites. Unremarkable pancreas and liver. The gallbladder is within normal limits without wall thickening, shadowing cholelithiasis or pericholecystic fluid. Normal common bile duct, 2.2 mm. The imaged right kidney is unremarkable without hydronephrosis. IMPRESSION: 1. Trace perihepatic ascites. 2. Unremarkable gallbladder. 3. No biliary ductal dilation. ACT 112: Negative or not required by law. The above report was generated using voice recognition software. It may contain grammatical, syntax or spelling errors. Electronically signed by: Cuco Fragoso M.D. 02/06/2021 7:33 AM [facility] Narrative Physical exam and history were performed. Nursing notes, EMR, and Medication List were personally reviewed. Patient appears to have right-sided abdominal pain that is radiating to her right shoulder. The patient is with normal vital signs and is with tenderness in both the right lower and right upper quadrant. IV access was established and labs were obtained. She was hydrated with normal saline and given IV morphine and IV Zofran for comfort. Type and screen was performed as well as hCG quantitative. The patient was sent directly to ultrasound for further evaluation. The patient's blood work is as above and was reviewed. She does have a slightly elevated white blood cell count of 11,000. Hemoglobin is normal at 12.4 and hematocrit is 36.8. She does not have significant electrolyte imbalance. Lipase and transaminases are not diagnostic. hCG quantitative is 1711. Urine is without evidence of infection. She is blood type O+ with a negative antibody screen. environmental science technician did contact me directly during performance of her sonogram, and voiced concern for a large amount of hemoperitoneum likely coming from a periovarian source consistent with ruptured ectopic. Gallbladder findings are normal. I did discuss imaging with radiology, who concurs that the patient has a ruptured ectopic. Covid swab was performed as a preprocedure precaution. I did speak with Dr. Cordero, INSIDE TRUCKER, who did evaluate the patient at bedside. The patient will be taken directly from the ER to the OR for definitive surgical intervention. Please see INSIDE TRUCKER dictation for further patie nt course, plan, and disposition. The chart was completed utilizing [employer] Speech Voice Recognition Software. Grammatical errors, random word insertions, pronoun errors, and incomplete sentences are an occasional consequence of this system due to software limitations, ambient noise, and hardware issues. Any formal questions or concerns about the content, text, or information contained within the body of this dictation should be directly addressed to the provider for clarification. . Impression & Plan Delayed or excessive hemorrhage following ectopic and molar , , ectopic, Hemoperitoneum Discharge Plan Visit Data Chief Complaint: Abdominal Pain Stated Complaint: ABD PAIN ED Provider: Jessica Tomlinson ED Midlevel Provider: Young Crockett Discharge Problem: Delayed or excessive hemorrhage following ectopic and molar , Pr egnancy, ectopic, Hemoperitoneum Discharge Instructions Interventions: ED Discharge Assessment Last Done: 02/06/21 08:30
[2021-02-06] MEDS ORDERED: NEOSTIGMINE METHYLSULFATE 1 MG/ML 10ML VIAL ONE (10:41)
[2021-02-06] MEDS ORDERED: GLYCOPYRROLATE 0.2 MG/ML VIAL ONE (10:41)
[2021-02-06] MEDS ORDERED: ONDANSETRON INJ 2 MG/ML 2 ML VIAL IV PRN (11:17)
[2021-02-06] MEDS ORDERED: bisacodyL 10 MG SUPP PR PRN (11:17)
[2021-02-06] MEDS ORDERED: MEPERIDINE HCL 25 MG/ML CARP/VIAL IV PRN (11:17)
[2021-02-06] MEDS ORDERED: oxyCODONE/ACETAMINOPHEN 5mg/325mg TAB PO PRN (11:17)
[2021-02-06] MEDS ORDERED: SIMETHICONE 80 MG CHEW PO PRN (11:17)
[2021-02-06] MEDS ORDERED: PROMETHAZINE HCL 12.5 MG in SODIUM CHLORIDE 0.9% 50 ML IV PRN (11:17)
[2021-02-06] MEDS ORDERED: IBUPROFEN 600 MG TAB PO PRN (11:17)
[2021-02-06] MEDS ORDERED: ZOLPIDEM TARTRATE 5 MG TAB PO PRN (11:17)
[2021-02-06] MEDS ORDERED: ACETAMINOPHEN 325 MG TAB PO PRN (11:17)
[2021-02-06] MEDS ORDERED: ACETAMINOPHEN 1,000 MG/100 ML VIAL IV PRN (11:21)
--- NOTE | 2021-02-06 11:22 | Post Operative Brief Note ---
Immediate Post Op Note v1 Date of Surgery February 06, 2021 Pre & Post Diagnosis Operation Date: 02/06/21 08:30 Pre-Op Diagnosis: Ruptured Ectopic Post-Op Diagnosis: Ruptured Ectopic I identified the patient and participated in the time-out.: Yes Procedure Operation Date: 02/06/21 08:30 Actual Procedures p Laparoscopic Evacuation Clots Abdomen and Pelvis, Right Ectopic Right Salpingectomy(Right) - Rosanna Tatum MD Surgeon Rosanna Tatum MD [employer] Instructor Dr Awad Estimated Blood Loss 500 Findings Consistent with Post-Op Diagnosis Drains Brown Catheter Anesthesia Type General Complications none
[2021-02-06 11:38] LABS: Hematocrit (blood only) 31.2 % (37-47); Hemoglobin 10.4 g/dL (12.0-16.0)
--- NOTE | 2021-02-06 12:12 | Anesthesiology Progress Note ---
Date of Service February 06, 2021 Anesthesia Post Procedure Vital Signs Vital Signs: Temp Pulse Pulse Pulse Resp BP BP 02/06/21 12:00 70 12 111/60 02/06/21 11:50 76 16 107/49 L 02/06/21 11:40 71 14 110/58 L 02/06/21 11:30 109 H 18 99/62 L 02/06/21 11:21 97.0 F L 93 H 12 122/71 02/06/21 08:35 97.9 F 77 18 101/83 02/06/21 08:24 66 18 98/50 L 02/06/21 07:48 88 18 131/74 02/06/21 07:00 128 H 24 162/114 H 02/06/21 05:31 98.2 F 99 H 133/88 02/06/21 05:17 97.9 F 109 H 18 136/83 Pulse Ox 02/06/21 12:00 100 02/06/21 11:50 100 02/06/21 11:40 100 02/06/21 11:30 100 02/06/21 11:21 99 02/06/21 08:35 100 02/06/21 08:24 98 02/06/21 07:48 100 02/06/21 07:00 97 02/06/21 05:31 98 02/06/21 05:17 98 Pain Intensity Right Abdomen: Pain Intensity: 8 Transfer of Care Handoff Completed per policy Notes Mental Status: alert / awake / arousable and participated in evaluation Patient Amnestic to Procedure: Yes Nausea / Vomiting: adequately controlled Pain: adequately controlled Airway Patency, RR, SpO2: stable & adequate BP & HR: stable & adequate Hydration State: stable & adequate Anesthetic Complications: no major complications apparent and Pt Satisfied with anesthetic care
--- NOTE | 2021-02-06 12:40 | Operative Report (OR) ---
DATE OF SURGERY: 02/06/2021 PREOPERATIVE DIAGNOSES: The patient is a 30-year-old 3, para 2-0-0-2 with unknown last menstrual period, positive beta hCG, ruptured ectopic with intraabdominal hemoperitoneum. POSTOPERATIVE DIAGNOSES: The patient is a 30-year-old 3, para 2-0-0-2 with unknown last menstrual period, positive beta hCG, ruptured ectopic with intraabdominal hemoperitoneum. Right tubal ectopic . PROCEDURE: Exam under anesthesia, operative laparoscopy, evacuation of blood clots from the abdomen and pelvis, partial right salpingectomy. SURGEON: Rosanna Tatum MD. COMPO CONVEYOR OPERATOR: Murray Awad MD. ESTIMATED BLOOD LOSS: 500 mL of blood and clots removed from the pelvis and abdomen. DRAINS: Brown catheter drained 300 mL of urine. FLUIDS RECEIVED: 1400 mL of lactated Ringer and 250 mL of albumin. ANESTHESIA: General endotracheal. ANESTHESIOLOGIST: Dr. Simon. COMPLICATIONS: None. FINDINGS: The patient had old blood clots in the cul-de-sac, pelvis and blood in the upper abdomen around the liver and spleen. Normal uterus and ovaries and left fallopian tube. Right fallopian tube had an ectopic at the fimbria and the ampullary end. It was dripping blood from the fimbrial end. Normal omentum and bowels, normal appendix, normal liver and gallbladder. DESCRIPTION OF PROCEDURE: The patient was taken to the operating room where general anesthesia was given without difficulty. She was placed in dorsal lithotomy position, prepared and draped in the usual sterile fashion. Spekulum was placed in patient's vagina. Cervix was visualized, grasped with single-tooth tenaculum. A Hulka manipulator was placed in the uterine cavity to provide manipulation during surgery. Gloves were changed and attention was returned to the patient's abdomen where a 12 mm periumbilical skin incision was made, the subcuticular fat tissue was dissected off with a tip of hemostat and then a Veress needle was introduced from the fascia and introduced into the abdominal cavity by elevating the abdominal wall bilaterally and then normal saline test was done, it was freely moving into the abdomen, and suctioned clear normal saline back. Then, the Veress needle was attached to the CO2 gas and the pressure was set to 15 mmHg and then the CO2 gas was started, abdomen was distended, and then the Veress needle was removed. An 11 mm trocar with a scope in was introduced from this incision while visualizing the layers of fascia and peritoneum. Intraabdominal placement was confirmed with the scope and then the abdomen and pelvis were inspected with the above findings. Two more trocars were placed in the lower quadrants of the abdomen; those were 5 mm trocars. Pictures were taken. Some of the clots were removed from the pelvis and the abdomen. The patient was placed in dorsal Trendelenburg position and then we were able to see the uterus, cul-de-sac and fallopian tubes and ovaries. Cul-de-sac was also emptied of some of the clots. Then, left fallopian tube and ovary were visualized to be normal, and the right fallopian tube had an ectopic on the infundibulum/ fimbrial end, and on portion of ampulla. Right tube was dilated and purple in color and dripping small amount of blood from the fimbrial end, and the right ovary was normal. This fallopian tube was held with a grasper and then with the LigaSure device, it was excised from the middle of the fallopian tube and this was placed in Endobag and it was removed from the incision, and the fallopian tube was inspected to be hemostatic, no more bleeding noted. Rest of the clots were suctioned. We used copious irrigation to dissolve the clots and then suctioned more. The patient was placed in the dorsal supine position and we suctioned more blood products from upper abdomen around the liver and spleen, and then pelvis was irrigated with warm normal saline and suctioned. The patient was placed in a Trendelenburg position again, pelvis was inspected many times, irrigated with warm normal saline and suctioned multiple times until all the clots were removed. Some of the clots were also placed in Endobag and then we checked the upper abdomen again and there was no more bleeding around the liver, gallbladder, or spleen and then we checked the pelvis again, there was no more bleeding and it was clean and dry. Pictures were taken before and after, and the decision was made to end the procedure. All the trocars were removed and CO2 gas was emptied from the patient's abdomen and the fascial incisions on the 11 mm trocar sites were held with the Cortes clamps and repaired with [id number] stitches x2, and the skin incisions were closed with 4-0 Monocryl in a subcuticular fashion and then the Hulka retractor was removed from the patient's cervix. Cervix was visualized to be hemostatic. The patient tolerated the procedure well. Sponge, lap, and needle count was correct x2. No complications happened. I was and Dr. Awad was present during whole procedure. She was taken off the lithotomy position, cleaned, dried, and brought to the recovery room in stable condition. Job ID: [id number] [facility]
[2021-02-06] MEDS: LACTATED RINGER'S 1,000 ML IV SCH ×2 (13:32→21:07)
[2021-02-06] MEDS: oxyCODONE/ACETAMINOPHEN 5mg/325mg TAB PO PRN (16:54)
[2021-02-06 17:27] LABS: Hematocrit (blood only) 30.8 % (37-47); Hemoglobin 10.1 g/dL (12.0-16.0); Immature Granulocytes # (auto) 0.01 K/uL (0.00-0.02); Immature Granulocytes % (auto) 0.1 %; Lymphocytes # (auto) 0.32 K/uL (1.2-3.4); Lymphocytes % (auto) 3.8 %; Mean Corpuscular Hemoglobin 32.6 pg (25-34); Mean Corpuscular Hgb Conc 32.8 g/dL (32-36); Mean Corpuscular Volume 99.4 fL (80-100); Mean Platelet Volume 9.9 fL (7.4-10.4); Monocytes # (auto) 0.16 K/uL (0.11-0.59); Monocytes % (auto) 1.9 %; Neutrophils % (auto) 94.2 %; Platelet Count 191 K/uL (130-400); RDW Coefficient of Variation 13.3 % (11.5-14.5); RDW Standard Deviation 47.9 fL (36.4-46.3); White Blood Count 8.39 K/uL (4.8-10.8)
[2021-02-06] MEDS: MEPERIDINE HCL 50 MG/ML CARP IV PRN ×2 (18:28→22:47)
--- NOTE | 2021-02-06 20:42 | Obstetrical Progress Note ---
Date of Service February 06, 2021 Assessment & Plan Admission and Anticipated Discharge Date Admission Date: February 06, 2021 Subjective Patient is seen and examined. She feels well, no complaints. Pain is under control with IV and oral meds. Ambulating without dizziness Voiding without difficulty Tolerating regular diet with out N&V Flatus + BM neg Bleeding is minimal No fever/ chills/ CP/ SOB/ N&V/ Leg pain Vital Signs Temp Pulse Resp BP Pulse Ox 02/06/21 15:10 80 16 120/70 96 02/06/21 14:18 72 16 102/63 93 02/06/21 13:46 70 16 101/63 97 02/06/21 13:18 36.5 C 83 18 110/70 98 02/06/21 12:55 92 H 16 109/65 97 02/06/21 12:40 65 12 107/62 96 02/06/21 12:25 71 12 109/56 L 97 02/06/21 12:10 36.7 C 65 12 105/55 L 97 02/06/21 12:00 70 12 111/60 100 02/06/21 11:50 76 16 107/49 L 100 02/06/21 11:40 71 14 110/58 L 100 02/06/21 11:30 109 H 18 99/62 L 100 02/06/21 11:21 36.1 C L 93 H 12 122/71 99 Lab Results 02/06/21 02/06/21 02/06/21 Range/Units 05:36 05:36 05:43 WBC 11.37 H (4.8-10.8) K/uL RBC 3.74 L (4.2-5.4) M/uL Hgb 12.4 (12.0-16.0) g/dL Hct 36.8 L (37-47) % MCV 98.4 (80-100) fL MCH 33.2 (25-34) pg MCHC 33.7 (32-36) g/dL RDW Std Deviation 47.4 H (36.4-46.3) fL RDW Coeff of Mis 13.1 (11.5-14.5) % Plt Count 242 (130-400) K/uL MPV 9.9 (7.4-10.4) fL Immature Gran % (Auto) 0.2 % Neut % (Auto) 73.4 % Lymph % (Auto) 18.1 % Donley % (Auto) 7.8 % Eos % (Auto) 0.4 % Baso % (Auto) 0.1 % Neut # (Auto) 8.35 H (1.4-6.5) K/uL Lymph # (Auto) 2.06 (1.2-3.4) K/uL Donley # (Auto) 0.89 H (0.11-0.59) K/uL Eos # (Auto) 0.04 (0-0.5) K/uL Baso # (Auto) 0.01 (0-0.2) K/uL Immature Gran # (Auto) 0.02 (0.00-0.02) K/uL Sodium (136-145) mmol/L Potassium (3.5-5.1) mmol/L Chloride (98-107) mmol/L Carbon Dioxide (21-32) mmol/L Anion Gap (3-11) BUN (7-18) mg/dl Creatinine (0.6-1.2) mg/dl Est Cr Clr Drug Dosing ml/min Est GFR ( Amer) ml/min Est GFR (Non-Af Amer) ml/min BUN/Creatinine Ratio (10-20) Glucose (70-99) mg/dl Calcium (8.5-10.1) mg/dl Total Bilirubin (0.2-1) mg/dl AST (15-37) U/L ALT (12-78) U/L Alkaline Phosphatase (45-117) U/L Total Protein (6.4-8.2) gm/dl Albumin (3.4-5.0) gm/dl Globulin (2.5-4.0) gm/dl Albumin/Globulin Ratio (0.9-2) Lipase (73-393) U/L HCG, Quant 1711 mIU/ml Urine Color Urine Appearance (Clear) Urine pH (4.5-7.5) Ur Specific [place] (1.000-1.030) Urine Protein (Negative) Urine Glucose (UA) (Negative) Urine Ketones (Negative) Urine Blood (Negative) Urine Nitrite (Negative) Urine Bilirubin (Negative) Urine Urobilinogen (Negative) Ur Leukocyte Esterase (Negative) COVID-19 Eval Order SARS-CoV-2 (PCR) (Negative) Blood Type O Positive Antibody Screen NEGATIVE Crossmatch See Detail 02/06/21 02/06/21 02/06/21 Range/Units 05:44 07:45 11:27 WBC (4.8-10.8) K/uL RBC (4.2-5.4) M/uL Hgb 10.4 L (12.0-16.0) g/dL Hct 31.2 L (37-47) % MCV (80-100) fL MCH (25-34) pg MCHC (32-36) g/dL RDW Std Deviation (36.4-46.3) fL RDW Coeff of Mis (11.5-14.5) % Plt Count (130-400) K/uL MPV (7.4-10.4) fL Immature Gran % (Auto) % Neut % (Auto) % Lymph % (Auto) % Donley % (Auto) % Eos % (Auto) % Baso % (Auto) % Neut # (Auto) (1.4-6.5) K/uL Lymph # (Auto) (1.2-3.4) K/uL [place] # (Auto) (0.11-0.59) K/uL Eos # (Auto) (0-0.5) K/uL Baso # (Auto) (0-0.2) K/uL Immature Gran # (Auto) (0.00-0.02) K/uL Sodium 142 (136-145) mmol/L Potassium 3.4 L (3.5-5.1) mmol/L Chloride 108 H (98-107) mmol/L Carbon Dioxide 27 (21-32) mmol/L Anion Gap 7.0 (3-11) BUN 11 (7-18) mg/dl Creatinine 0.75 (0.6-1.2) mg/dl Est Cr Clr Drug Dosing 126.2 ml/min Est GFR ( Amer) 122.2 ml/min Est GFR (Non-Af Amer) 105.5 ml/min BUN/Creatinine Ratio 14.8 (10-20) Glucose 97 (70-99) mg/dl Calcium 9.0 (8.5-10.1) mg/dl Total Bilirubin 0.3 (0.2-1) mg/dl AST 16 (15-37) U/L ALT 28 (12-78) U/L Alkaline Phosphatase 53 (45-117) U/L Total Protein 7.2 (6.4-8.2) gm/dl Albumin 3.9 (3.4-5.0) gm/dl Globulin 3.3 (2.5-4.0) gm/dl Albumin/Globulin Ratio 1.2 (0.9-2) Lipase 64 L (73-393) U/L HCG, Quant mIU/ml Urine Color Yellow Urine Appearance Clear (Clear) Urine pH 5.5 (4.5-7.5) Ur Specific [place] 1.027 (1.000-1.030) Urine Protein Negative (Negative) Urine Glucose (UA) Negative (Negative) Urine Ketones Negative (Negative) Urine Blood Negative (Negative) Urine Nitrite Negative (Negative) Urine Bilirubin Negative (Negative) Urine Urobilinogen Negative (Negative) Ur Leukocyte Esterase Negative (Negative) COVID-19 Eval Order SARS-CoV-2 (PCR) (Negative) Blood Type Antibody Screen Crossmatch 02/06/21 02/06/21 02/06/21 Range/Units 17:09 Unknown Unknown WBC 8.39 (4.8-10.8) K/uL RBC 3.10 L (4.2-5.4) M/uL Hgb 10.1 L (12.0-16.0) g/dL Hct 30.8 L (37-47) % MCV 99.4 (80-100) fL MCH 32.6 (25-34) pg MCHC 32.8 (32-36) g/dL RDW Std Deviation 47.9 H (36.4-46.3) fL RDW Coeff of Mis 13.3 (11.5-14.5) % Plt Count 191 (130-400) K/uL MPV 9.9 (7.4-10.4) fL Immature Gran % (Auto) 0.1 % Neut % (Auto) 94.2 % Lymph % (Auto) 3.8 % Donley % (Auto) 1.9 % Eos % (Auto) 0.0 % Baso % (Auto) 0.0 % Neut # (Auto) 7.90 H (1.4-6.5) K/uL Lymph # (Auto) 0.32 L (1.2-3.4) K/uL [place] # (Auto) 0.16 (0.11-0.59) K/uL Eos # (Auto) 0.00 (0-0.5) K/uL Baso # (Auto) 0.00 (0-0.2) K/uL Immature Gran # (Auto) 0.01 (0.00-0.02) K/uL Sodium (136-145) mmol/L Potassium (3.5-5.1) mmol/L Chloride (98-107) mmol/L Carbon Dioxide (21-32) mmol/L Anion Gap (3-11) BUN (7-18) mg/dl Creatinine (0.6-1.2) mg/dl Est Cr Clr Drug Dosing ml/min Est GFR ( Amer) ml/min Est GFR (Non-Af Amer) ml/min BUN/Creatinine Ratio (10-20) Glucose (70-99) mg/dl Calcium (8.5-10.1) mg/dl Total Bilirubin (0.2-1) mg/dl AST (15-37) U/L ALT (12-78) U/L Alkaline Phosphatase (45-117) U/L Total Protein (6.4-8.2) gm/dl Albumin (3.4-5.0) gm/dl Globulin (2.5-4.0) gm/dl Albumin/Globulin Ratio (0.9-2) Lipase (73-393) U/L HCG, Quant mIU/ml Urine Color Urine Appearance (Clear) Urine pH (4.5-7.5) Ur Specific [place] (1.000-1.030) Urine Protein (Negative) Urine Glucose (UA) (Negative) Urine Ketones (Negative) Urine Blood (Negative) Urine Nitrite (Negative) Urine Bilirubin (Negative) Urine Urobilinogen (Negative) Ur Leukocyte Esterase (Negative) COVID-19 Eval Order Covid19 at [facility] SARS-CoV-2 (PCR) NEGATIVE (Negative) Blood Type Antibody Screen Crossmatch PE: General: Alert, orientedx3, NAD B Abd: soft, NT, ND, BS+, Incision: Clean, dry, intact Perineum intact, No VB Ext; NT, no edema AP: 30 yo s/p operative laparoscopy, evacuation of blood clots from pelvis and abdomen, right salpingectomy, pod# 0 VSS Afebrile doing well Continue routine postop care Encourage ambulation, PO intake All questions were answered D/C home in am Results & Data ([facility]) Vital Signs (Past 12 Hours) Vital Signs Temp Pulse Resp BP Pulse Ox 02/06/21 15:10 80 16 120/70 96 02/06/21 14:18 72 16 102/63 93 02/06/21 13:46 70 16 101/63 97 02/06/21 13:18 36.5 C 83 18 110/70 98 02/06/21 12:55 92 H 16 109/65 97 02/06/21 12:40 65 12 107/62 96 02/06/21 12:25 71 12 109/56 L 97 02/06/21 12:10 36.7 C 65 12 105/55 L 97 02/06/21 12:00 70 12 111/60 100 02/06/21 11:50 76 16 107/49 L 100 02/06/21 11:40 71 14 110/58 L 100 02/06/21 11:30 109 H 18 99/62 L 100 02/06/21 11:21 36.1 C L 93 H 12 122/71 99
[2021-02-06] MEDS: DOCUSATE SODIUM 100 MG CAP PO SCH (20:59)
[2021-02-07] MEDS: LACTATED RINGER'S 1,000 ML IV SCH (00:56)
[2021-02-07] MEDS: oxyCODONE/ACETAMINOPHEN 5mg/325mg TAB PO PRN (07:31)
[2021-02-07] MEDS: DOCUSATE SODIUM 100 MG CAP PO SCH (07:32)
[2021-02-07 07:39] LABS: Hematocrit (blood only) 30.2 % (37-47)
--- NOTE | 2021-02-07 10:34 | Obstetrical Progress Note ---
Date of Service February 07, 2021 Assessment & Plan (1) Status post laparoscopy: s/p laparoscopy for ectopic pt doing well d/c home with instructions Subjective Review of Systems All systems reviewed & are unremarkable except as noted in HPI & below Physical Exam Constitutional WD/WN, vitals as above Eyes PERRL, conjunctivae normal, anicteric sclerae ENMT external ear and nose normal, oropharynx normal Neck trachea midline, no thyromegaly Respiratory normal respiratory effort, lungs clear to auscultation Cardiovascular RRR, no murmur, no edema Chest (Breasts) normal inspection/palpation of breasts Gastrointestinal (Abdomen) normal bowel sounds, soft, nontender, no hepatosplenomegaly (incisons sites: clean, dry and intact.) Musculoskeletal no cyanosis or clubbing, extremities motor strength 5/5 Skin + incision (Incision clean,dry and intact) Neurologic patellar DTR's 2+ bilat, sensation intact Psychiatric A+Ox3, euthymic affect Genitourinary no vaginal lesions, no adnexal mass Lymphatic no cervical or axillary lymphadenopathy Results & Data ([facility]) Vital Signs (Past 12 Hours) Vital Signs Temp Pulse Resp BP Pulse Ox 02/07/21 10:03 37.3 C 67 16 101/62 95 02/07/21 07:19 37.3 C 67 16 101/62 95 02/07/21 03:39 36.3 C L 65 16 97/60 L 96 02/06/21 22:38 36.5 C 73 16 106/62 96
--- NOTE | 2021-02-12 09:39 | Discharge Summary (DS) ---
DATE OF ADMISSION: 02/06/2021 DATE OF DISCHARGE: 02/07/2021 DETAILS OF ADMISSION: The patient is a 30-year-old G3, P2-0-0-2, with unknown last period. She was known to me from prior pregnancies. She presents to ER on 02/06 morning with abdominal pain, which w as radiating to right upper quadrant and her right shoulder. She was found to have positive beta hCG , but ultrasound did not reveal any intrauterine . They saw a large amount of collection of most likely blood in the pelvis and abdomen suggesting a ruptured ectopic . Her vital sign s were stable, afebrile. Her H and H was stable. After discussion with the patient about risks and benefits of surgery, she was taken to the operating room for laparoscopic treatment of ectopic pregna ncy. She had an operative laparoscopy, evacuation of blood clots from the abdomen and pelvis, and pa rtial right salpingectomy and her surgery was uncomplicated. See dictated op note for details. On postoperative period, the patient was doing well, vital signs stable, afebrile. Urine output was good. She was ambulating, tolerating regular diet. Her postop H and H was 10.4/31.2. She was havin g some pain in the upper abdomen and shoulder, probably related to gas pain. She was receiving IV an d oral pain medication. She was observed overnight and in the morning, postoperative day #1, the pat ient was doing well, vital signs stable, afebrile. Physical exam was unremarkable. Incisions were c lean, dry and intact. Abdomen was soft, nontender, nondistended. Her repeat H and H was 30. So the patient was discharged home on 02/07/2021. Discharge instructions were given. Prescriptions wer e written for pain. She is to be seen in the office in 1-2 weeks. All questions were answered. Job ID: [id number]
== END 2021-02-07 11:55 | disposition home or self-care (01) ==
LOC: ED 05:15 → ASU 08:31 → 3E 08:31
DX: O08.1 Delayed or excessive hemorrhage following ectopic and molar pregnancy; Z87.891 Personal history of nicotine dependence; K66.1 Hemoperitoneum

== ENCOUNTER 2022-11-21 02:30 | Inpatient (IN) ==
[2022-11-21] MEDS ORDERED: LIDOCAINE 1% LOCAL 20 ML VIAL INFIL PRN (03:02)
[2022-11-21] MEDS ORDERED: OXYTOCIN 30 UNITS/500 ML BAG IV PRN ×2 (03:02→04:10)
[2022-11-21] MEDS ORDERED: LACTATED RINGER'S 1,000 ML IV PRN (03:02)
--- NOTE | 2022-11-21 03:31 | History & Physical Report ---
Date of Service November 21, 2022 Assessment & Plan Admission and Anticipated Discharge Date Admission Date: November 21, 2022 History of Present Illness Chief Complaint: onset of labor Primary Care Provider: Joshua Hsieh MD 32 F P2012 at 40.6 in active labor. GBS is negative. Allergies Allergy/AdvReac Type Severity Reaction Status Date / Time No Known Allergies Allergy Mild Verified 11/21/22 02:49 Home Medications Medication Instructions Recorded Confirmed Type docusate sodium 100 mg capsule 100 mg PO DAILY PRN Constipation 11/06/22 11/21/22 History (Stool Softener) metoprolol succinate 50 mg 50 mg PO DAILY 11/06/22 11/21/22 History tablet,extended release 24 hr prenat.vits,kevan,jvi-gjeu-tembd 1 tab PO DAILY 11/06/22 11/21/22 History Patient History Medical History Encounter for pre-operative examination H/O vaginal delivery Heart palpitations Hemoperitoneum , ectopic Surgical History [place] teeth extracted Social History Smoking Status: Never smoker Do You Dip or Chew Tobacco: No; Hx Alcohol Use: No Hx Substance Use: No Preferred Language: Moldovan Communication Ability: Effective Visual Impairment: No Limitations Security Controls Assessor Required: No Beliefs That Will Affect Care: None marital status: Current Living Situation: Spouse and Family Other Information That Helps Us Care for You: No Feels Safe at Home: Yes Safety Concerns: Feels Safe At This Time Assistive Devices: Contacts OB History x1 [employer] History PRIOR ECTOPIC Review of Systems All systems reviewed & are unremarkable except as noted in HPI & below Physical Exam Constitutional: WD/WN, vitals as above Musculoskeletal: Extremities: extremities normal to inspection Skin: no rashes, warm and dry Neurologic: patellar DTR's 2+ bilat, sensation intact Psychiatric: A+Ox3, euthymic affect Genitourinary: no vaginal lesions, no adnexal mass OB Exam Abdomen: + fundal height and + vertex Manual OB Exam: + cervical dilation, + cervical effacement 100%, + station -2 and + amniotic fluid clear OB Exam Monitor Tracing: + external FHT monitor used, + external uterine monitor used, + monet gory I and + normal FHT variability AROM with Amni-hook clear fluid Results & Data Vital Signs (Past 12 Hours) Vital Signs Temp Pulse Resp BP 11/21/22 02:59 36.8 C 18 11/21/22 03:04 36.8 C 98 H 120/60 Code Status & VTE Plan VTE Prophylaxis Plan VTE Prophylaxis will be ordered: No Reason for no VTE drug order: Treatment not indicated Monitoring External Monitor Cat 1
[2022-11-21 03:59] LABS: Hematocrit (blood only) 37.8 % (37.0-47.0); Hemoglobin 12.7 g/dl (12.0-16.0); Mean Corpuscular Hemoglobin 31.8 pg (25.0-34.0); Mean Corpuscular Hgb Conc 33.6 g/dL (32.0-36.0); Mean Corpuscular Volume 94.5 fL (80.0-100.0); Mean Platelet Volume 11.4 fL (9.4-12.4); Platelet Count 214 K/uL (130-400); RDW Coefficient of Variation 13.9 % (11.5-14.5); RDW Standard Deviation 47.8 fL (36.4-46.3)
--- NOTE | 2022-11-21 04:06 | Delivery Summary ---
Vaginal Delivery Summary Date of Service November 21, 2022 Vaginal Delivery Summary Delivery Note live female JAIME over intact perineum with delayed cord clamping and Apgars 8/9 weight pending. Cord blood obtained followed by spontaneous delivery of intact placenta. No tears. EBL 100 ml. Final sponge and instrument count are correct. Mom and baby stable.
[2022-11-21] MEDS ORDERED: BENZOCAINE 20% AER SPR 82.5 GM CAN EXT PRN (04:10)
[2022-11-21] MEDS ORDERED: DIPHTHERIA/TETANUS/PERTUSSIS Vaccine (Tdap, Age 7+yrs) 0.5mL SYR/VL IM ONE (04:10)
[2022-11-21] MEDS ORDERED: HYDROCORTISONE ACETATE 25 MG SUPP PR PRN (04:10)
[2022-11-21] MEDS ORDERED: ACETAMINOPHEN 325 MG TAB PO PRN (04:10)
[2022-11-21] MEDS ORDERED: DOCUSATE SODIUM 100 MG CAP PO PRN (04:10)
[2022-11-21] MEDS ORDERED: bisacodyL 10 MG SUPP PR PRN (04:10)
[2022-11-21] MEDS: IBUPROFEN 600 MG TAB PO PRN ×5 (04:21→21:09)
[2022-11-21] MEDS: FERROUS SULFATE 325 MG TAB PO SCH (08:18)
[2022-11-21] MEDS: PRENATAL VITAMIN 1 TAB PO SCH (08:18)
[2022-11-21] MEDS: DOCUSATE SODIUM 100 MG CAP PO SCH ×2 (08:18→20:40)
[2022-11-21] MEDS: METOPROLOL SUCC 50MG EXT REL TAB PO SCH (08:18)
[2022-11-21] MEDS ORDERED: NON-FORMULARY MEDICATION (Prenat.Vits,Cal,Min-Iron-Folic Tablet) PO SCH (09:00)
[2022-11-22 06:26] LABS: Hematocrit (blood only) 33.8 % (37.0-47.0); Hemoglobin 11.1 g/dl (12.0-16.0); Mean Corpuscular Hemoglobin 31.2 pg (25.0-34.0); Mean Corpuscular Hgb Conc 32.8 g/dL (32.0-36.0); Mean Corpuscular Volume 94.9 fL (80.0-100.0); Mean Platelet Volume 11.3 fL (9.4-12.4); Platelet Count 166 K/uL (130-400); RDW Coefficient of Variation 14.3 % (11.5-14.5); RDW Standard Deviation 49.5 fL (36.4-46.3); Red Blood Count 3.56 M/uL (4.20-5.40); White Blood Count 9.35 K/ul (4.8-10.8)
[2022-11-22] MEDS: IBUPROFEN 600 MG TAB PO PRN (08:00)
[2022-11-22] MEDS: METOPROLOL SUCC 50MG EXT REL TAB PO SCH (08:00)
[2022-11-22] MEDS: DOCUSATE SODIUM 100 MG CAP PO SCH (08:00)
[2022-11-22] MEDS: PRENATAL VITAMIN 1 TAB PO SCH (08:00)
[2022-11-22] MEDS: FERROUS SULFATE 325 MG TAB PO SCH (08:00)
--- NOTE | 2022-11-22 09:46 | Obstetrical Progress Note ---
Date of Service November 22, 2022 Assessment & Plan (1) normal course: PPD #2 pt doing well No complaints disch home with instructions Results & Data Vital Signs (Past 12 Hours) Vital Signs Temp Pulse Resp BP Pulse Ox O2 Del Method 11/21/22 23:45 36.8 C 84 16 132/78 96 Room Air
[2022-11-22] MEDS ORDERED: bisacodyL 5 MG TABEC PO SCH (20:00)
== END 2022-11-22 12:35 | disposition home or self-care (01) | DRG 807 ==
LOC: OPB 02:30 → 4S1 02:32 → 4E2 06:36